=== PATIENT | female | born 1955 | race American Indian/Alaskan Native ===

== ENCOUNTER 2018-05-12 14:18 | Emergency (ER) | payer SELFPAY ==
[2018-05-12] MEDS ORDERED: ASPIRIN PO ONE (14:39)
[2018-05-12 15:23] LABS: Basophils % (Auto) 0.5 % (0.0-1.8); Eosinophils # (Auto) 0.1 K/mm3 (0.0-0.4); Eosinophils % (Auto) 1.5 % (0.0-4.3); Hematocrit 38.2 % (30.3-42.9); Hemoglobin 12.5 gm/dl (10.1-14.3); Lymphocytes # (Auto) 2.9 K/mm3 (1.2-5.4); Lymphocytes % (Auto) 30.6 % (13.4-35.0); Mean Corpuscular HGB Conc 33 % (30-34); Mean Corpuscular Hemoglobin 28 pg (28-32); Mean Corpuscular Volume 86 fl (79-97); Monocytes # (Auto) 0.8 K/mm3 (0.0-0.8); Monocytes % (Auto) 8.1 % (0.0-7.3); Platelet Count 375 K/mm3 (140-440); Red Blood Count 4.43 M/mm3 (3.65-5.03); Red Cell Distribution Width 14.5 % (13.2-15.2)
[2018-05-12 15:33] LABS: BUN/Creatinine Ratio 19; Blood Urea Nitrogen 15 mg/dL (7-17); Hemolysis Index 9
[2018-05-12] MEDS ORDERED: APRESOLINE IV ONE (17:04)
--- NOTE | 2018-05-12 17:06 | Emergency Department Report ---
ED Chest Pain HPI - General Chief Complaint: Dyspnea/Respdistress Stated Complaint: LEFT AND RIGHT KNEE PAIN Time Seen by Provider: 05/12/18 17:00 Source: patient Mode of arrival: Ambulatory Limitations: No Limitations - History of Present Illness Initial Comments: 8-year-old female that presents emergency room with complaints of chest pain and shortness of breath 4 days. Patient states that she also has bilateral lower extremity edema. Patient states that the chest pain is radiating to her left upper extremity. Patient states she's been out of her blood pressure medications for 3 weeks. Patient states she just recently moved here and she has not found a PCP. Based on past medical history of hypertension which for which he took lisinopril. MD Complaint: chest pain -: Sudden Onset: during rest Pain Location: substernal, left chest Pain Radiation: LUE Severity: severe Severity scale (0 -10): 6 Quality: sharp Consistency: constant Improves With: rest Worsens With: exertion, movement re: dyspnea. denies: nausea, vomting, diaphoresis, sense of impending doom Other Symptoms: denies: cough, fever, syncope, rash, acid taste in mouth, leg swelling, palpitations, burping Treatments Prior to Arrival: none Aspirin use within the Past 7 Days: (0) No - Related Data On Oral Contraceptives: No Previous Rx's Medication Instructions Recorded Last Taken Type amLODIPine [Norvasc] 10 mg PO DAILY #30 tab 05/12/18 Unknown Rx hydroCHLOROthiazide [HCTZ] 25 mg PO QDAY #30 tablet 05/12/18 Unknown Rx Allergies Allergy/AdvReac Type Severity Reaction Status Date / Time No Known Allergies Allergy Unverified 05/12/18 14:38 Heart Score - HEART Score History: Slightly suspicious EKG: Non-specific Age: 45-65 Risk factors: 1-2 risk factors Troponin: < normal limit HEART Score: 3 ED Review of Systems ROS: Stated complaint: LEFT AND RIGHT KNEE PAIN Other details as noted in HPI Constitutional: denies: chills, fever Eyes: denies: eye pain, eye discharge, vision change ENT: denies: ear pain, throat pain Respiratory: shortness of breath. denies: cough, wheezing Cardiovascular: chest pain, edema. denies: palpitations Endocrine: no symptoms reported Gastrointestinal: denies: abdominal pain, nausea, diarrhea Genitourinary: denies: urgency, dysuria, discharge Musculoskeletal: denies: back pain, joint swelling, arthralgia Skin: denies: rash, lesions Neurological: denies: headache, weakness, paresthesias Psychiatric: denies: anxiety, depression Hematological/Lymphatic: denies: easy bleeding, easy bruising ED Past Medical Hx - Past Medical History Previous Medical History?: Yes Hx Hypertension: Yes - Surgical History Past Surgical History?: Yes Hx Cholecystectomy: Yes Hx Appendectomy: Yes Additional Surgical History: Hernia repair/mesh - Family History Family history: no significant - Social History Smoking Status: Never Smoker Substance Use Type: None - Medications Home Medications: Home Medications Medication Instructions Recorded Confirmed Last Taken Type amLODIPine [Norvasc] 10 mg PO DAILY #30 tab 05/12/18 Unknown Rx hydroCHLOROthiazide [HCTZ] 25 mg PO QDAY #30 tablet 05/12/18 Unknown Rx ED Physical Exam - General Limitations: No Limitations General appearance: alert, in no apparent distress - Head Head exam: Present: atraumatic, normocephalic - Eye Eye exam: Present: normal appearance - ENT ENT exam: Present: mucous membranes moist - Neck Neck exam: Present: normal inspection - Respiratory Respiratory exam: Present: normal lung sounds bilaterally. Absent: respiratory distress - Cardiovascular Cardiovascular Exam: Present: regular rate, normal rhythm. Absent: systolic murmur, diastolic murmur, rubs, gallop - GI/Abdominal GI/Abdominal exam: Present: soft, normal bowel sounds. Absent: distended, tenderness, guarding - Rectal Rectal exam: Present: deferred - Extremities Exam Extremities exam: Present: pedal edema - Back Exam Back exam: Present: normal inspection - Neurological Exam Neurological exam: Present: alert, oriented X3 - Psychiatric Psychiatric exam: Present: normal affect, normal mood - Skin Skin exam: Present: warm, dry, intact, normal color. Absent: rash ED Course Vital Signs 05/12/18 05/12/18 05/12/18 14:33 16:10 16:20 Temperature 98.6 F 98.7 F Pulse Rate 99 H 98 H Respiratory 18 Rate Blood Pressure 210/92 Blood Pressure 243/115 [Left] O2 Sat by Pulse 98 100 100 Oximetry 05/12/18 05/12/18 05/12/18 16:33 17:28 17:30 Temperature Pulse Rate 89 Respiratory 18 18 20 Rate Blood Pressure 243/115 185/86 Blood Pressure [Left] O2 Sat by Pulse 100 Oximetry 05/12/18 05/12/18 05/12/18 17:45 18:00 18:06 Temperature Pulse Rate 98 H 107 H 111 H Respiratory 20 17 Rate Blood Pressure 178/68 195/81 Blood Pressure [Left] O2 Sat by Pulse Oximetry 05/12/18 05/12/18 05/12/18 18:15 19:48 19:57 Temperature 97.9 F Pulse Rate 81 95 H 95 H Respiratory 13 18 Rate Blood Pressure 179/70 207/87 Blood Pressure 207/87 [Left] O2 Sat by Pulse 97 Oximetry 05/12/18 05/12/18 05/12/18 20:00 20:30 21:10 Temperature Pulse Rate 92 H 84 Respiratory 17 18 Rate Blood Pressure 181/93 181/93 163/81 Blood Pressure [Left] O2 Sat by Pulse 95 97 95 Oximetry 05/12/18 05/12/18 21:30 22:00 Temperature Pulse Rate Respiratory Rate Blood Pressure 164/73 183/86 Blood Pressure [Left] O2 Sat by Pulse 94 94 Oximetry - Reevaluation(s) Reevaluation #1: Discussed all results with patient. Patient agrees with plan of care and admission. Blood pressures responded well to medications. 05/12/18 18:43 - Consultations Consultation #1: 05/12/18 18:43 Hospitalist consulted, hospitalist to admit and assume care. Full report given to Dr. Nahid MICHELLE score - Dima Score Age > 65: (0) No Aspirin use within the Past 7 Days: (0) No 3 or more CAD Risk Factors: (0) No 2 or more Angina events in past 24 hrs: (1) Yes Known CAD with more than 50% Stenosis: (0) No Elevated Cardiac Markers: (0) No ST Deviation Greater than 0.5mm: (0) No DIMA Score: 1 ED Medical Decision Making - Lab Data Result diagrams: 05/12/18 15:04 05/12/18 15:04 - EKG Data -: EKG Interpreted by Ms EKG shows normal: sinus rhythm, axis, intervals, QRS complexes, ST-T waves Rate: normal - Radiology Data Radiology results: report reviewed FINAL REPORT PROCEDURE: Chest. TECHNIQUE: Portable AP view. HISTORY: Shortness of breath, chest pain. COMPARISON: No prior studies are available for comparison. FINDINGS: The radiograph is slightly underpenetrated. The heart and mediastinum appear normal. There is calcification in the aortic arch. The lungs are clear and well expanded. There are no pleural effusions. The soft tissues and regional skeleton are unremarkable. IMPRESSION: Negative portable chest. Transcribed By: ADEN Dictated By: AARON JEONG MD Electronically Authenticated By: AARON JEONG MD Signed Date/Time: 05/12/182100 - Medical Decision Making 8-year-old female presents to emergency with high blood pressure chest pain shortness of breath. Patient initial cardiac workup was negative. Patient's blood pressure improved with medications. Patient will be admitted to the hospitalist service for further evaluation and treatment. - Differential Diagnosis acs. htn. mal htn. sob. Critical Care Time: Yes Critical care attestation.: If time is entered above; I have spent that time in minutes in the direct care of this critically ill patient, excluding procedure time. Critical Care Time: 20 minutes for cc time ED Disposition Clinical Impression: Shortness of breath, Malignant hypertension Chest pain Qualifiers: Chest pain type: unspecified Qualified Code(s): R07.9 - Chest pain, unspecified Disposition: OP ADMIT IP TO THIS HOSP Is pt being admited?: Yes Does the pt Need Aspirin: No Condition: Critical Prescriptions: amLODIPine [Norvasc] 10 mg PO DAILY #30 tab hydroCHLOROthiazide [HCTZ] 25 mg PO QDAY #30 tablet Time of Disposition: 18:45
[2018-05-12] MEDS ORDERED: ASPIRIN ONE (17:28)
[2018-05-12] MEDS: LOPRESSOR IV ONE ×2 (17:53→18:06)
--- NOTE | 2018-05-12 18:44 | Consultation ---
Medications and Allergies Allergies Allergy/AdvReac Type Severity Reaction Status Date / Time No Known Allergies Allergy Unverified 05/12/18 14:38 Exam - Constitutional Vitals: Temp Pulse Resp BP Pulse Ox 98.7 F 81 13 179/70 100 05/12/18 16:20 05/12/18 18:15 05/12/18 18:15 05/12/18 18:15 05/12/18 16:33 Results - Labs CBC & Chem 7: 05/12/18 15:04 05/12/18 15:04 Labs: Abnormal lab results 05/12/18 Range/Units 15:04 [place] % (Auto) 8.1 H (0.0-7.3) %
[2018-05-12] MEDS ORDERED: ZESTRIL PO ONE (19:45)
[2018-05-12] MEDS ORDERED: NORVASC PO ONE (20:06)
--- NOTE | 2018-05-12 21:02 | XRay Report ---
FINAL REPORT PROCEDURE: Chest. TECHNIQUE: Portable AP view. HISTORY: Shortness of breath, chest pain. COMPARISON: No prior studies are available for comparison. FINDINGS: The radiograph is slightly underpenetrated. The heart and mediastinum appear normal. There is calcification in the aortic arch. The lungs are clear and well expanded. There are no pleural effusions. The soft tissues and regional skeleton are unremarkable. IMPRESSION: Negative portable chest.
--- NOTE | 2018-05-12 22:20 | Cat Scan Report ---
FINAL REPORT PROCEDURE: CT angiogram chest with contrast. TECHNIQUE: Computerized tomographic angiography of the chest was performed after the IV injection of iodinated nonionic contrast including image processing. The image data was postprocessed using 2-dimensional multiplanar reformatted (MPR) and 3-dimensional (MIP and/or volume rendered) techniques. HISTORY: Dyspnea. COMPARISON: No prior studies are available for comparison. FINDINGS: The trachea and central bronchi appear normal. There is minimal streaky opacity in the medial portion of the right lower lobe. This may represent some scarring or subsegmental atelectasis. The lungs are otherwise clear and well expanded. There are no signs of pneumonia. There are no pleural effusions. The thoracic aorta has a normal caliber without evidence of dissection. The pulmonary arteries enhance normally. There is no evidence of pulmonary embolism. There is no mediastinal adenopathy. The heart size is normal. The adrenal glands are not enlarged. The thoracic skeleton appears intact. IMPRESSION: No significant abnormality identified.
[2018-05-12 22:52] VITALS: BP 183/86
== END 2018-05-13 01:12 | disposition home or self-care (01) ==
LOC: ED 14:18
DX: R07.89 Other chest pain (principal); R06.02 Shortness of breath; I10 Essential (primary) hypertension; Z90.89 Acquired absence of other organs
CPT/HCPCS: 36415; 71045; 71275; 80048; 83880; 84484; 85025; 85379; 93005; 93010; 96374; 96375; 99285; J0360; Q9967